=== PATIENT | female | born 1970 | race Two or more races ===

== ENCOUNTER 2022-05-08 02:24 | Emergency (ER) | payer BC, OTHER ==
[~2022-05-08] VITALS: Ht 160 cm; Wt 77.1 kg
--- NOTE | 2022-05-08 02:30 | NUR ---
c/o lower back pain x 3 days. denies trauma. Positioned comfortably in bed. Vitals checked.
[2022-05-08] MEDS ORDERED: IBUPROFEN 400 MG TABLET ONE (03:00)
[2022-05-08] MEDS ORDERED: IBUPROFEN 400 MG TABLET PO ONE (03:00)
--- NOTE | 2022-05-08 03:05 | NUR ---
PAIN ORAL MEDS GIVEN
--- NOTE | 2022-05-08 04:13 | NUR ---
Patient discharged to home in stable condition. Written and verbal after care instructions given. Patient verbalizes understanding of instruction.
[2022-05-08 04:14] VITALS: BP 132/81
== END 2022-05-08 04:15 | disposition home or self-care (01) ==
LOC: ER 02:27
DX: M54.50 Low back pain, unspecified (principal)
CPT/HCPCS: 72110-TC